=== PATIENT | male | born 1985 | race Caucasian/White ===

== ENCOUNTER 2016-03-27 13:54 | Emergency (ER) | payer OTHER ==
[2016-03-27 14:49] VITALS: BP 138/82; PULSE 94; RESP 16; TEMP 98.4; O2SAT 97
--- NOTE | 2016-03-27 15:30 | UCPHY ---
H & P Patient Type: New Smoking Status: Never smoked Time Seen by Provider: 03/27/16 14:59 HPI/ROS: CHIEF COMPLAINT: left wrist wound check HISTORY OF PRESENT ILLNESS: 30-year-old male presents requesting a wound check of his left wrist. Patient 4 days ago was picking up his niece in his middle watch made a puncture wound into his left wrist. Patient reports he did not wash this, later place antibiotic ointment and a Band-Aid, he is concerned about the surrounding redness and the scab. He denies pain, fevers or chills, difficulty with range of motion of his wrist. Tetanus is up-to-date, no other complaints. (Tika Crowell) Physical Exam: GEN: Awake, alert, oriented, no acute distress RESP: nl resp effort MSK: No swelling to wrist, full flexion and extension, 2+ radial pulses, sensation intact to light touch SKIN: 1 cm x 1 cm area of erythema with central scab, no raised, no fluctuance , no tenderness (Tika Crowell) Constitutional: Initial Vital Signs Temperature (C) 36.9 C 03/27/16 14:40 Heart Rate 94 03/27/16 14:40 Respiratory Rate 16 03/27/16 14:40 Blood Pressure 138/82 H 03/27/16 14:40 O2 Sat (%) 97 03/27/16 14:40 O2 Delivery Mode Room Air Allergies/Adverse Reactions: No Known Allergies Allergy (Unverified 03/27/16 14:47) Home Medications: Medication Instructions Recorded ADDERALL 15 MG TABLET 03/27/16 LORAZEPAM 03/27/16 MDM/Departure - MDM Procedures: Left wrist wound anesthetized 1% lidocaine without epinephrine, this was scribed well by emergency department a/c technician ointment and Band-Aid was placed. (Tika Crowell) ED Course/Re-evaluation: The patient was evaluated and managed by the Physician Performance Analyst/ Nurse Practitioner. My co-signature indicates that I have reviewed this chart and I agree with the findings and plan of care as documented. I am the secondary supervising physician. (Reina Higginbotham) - Depart Disposition: Home, Routine, Self-Care Clinical Impression: Puncture wound of left wrist Qualifiers: Encounter type: initial encounter Qualifier Code: (S61.532A) Puncture wound without foreign body of left wrist, initial encounter Condition: Good Instructions: Acute Wound Care (ED) Additional Instructions: Warm compresses to left wrist 5 times a day for 5 minutes, antibiotic ointment and Band-Aid daily, wash with soap and water daily. Return for any worsening symptoms, pain, drainage, spreading of redness. [place]errals[place],. [Primary Care Provider] - As per Instructions - PQRS PQRS Measurement: tariq (Tika Crowell)
== END 2016-03-27 16:18 | disposition home or self-care (01) ==
LOC: CED 13:54
DX: S61.532A Puncture wound without foreign body of left wrist, initial encounter (principal)
CPT/HCPCS: 99203-PO; G0463-PO

== ENCOUNTER 2016-07-12 14:25 | Emergency (ER) | payer OTHER ==
[2016-07-12 14:36] VITALS: BP 145/97; PULSE 94; RESP 16; TEMP 98.1; O2SAT 97
--- NOTE | 2016-07-12 15:13 | UCPHY ---
H & P Patient Type: Established Chief Complaint Nursing Narrative: Itchy rash on R arm, scrotum, and penis x 1 week. Dx impetigo on face 07/09 and taking keflex. Time Seen by Provider: 07/12/16 14:59 HPI/ROS: Chief Complaint: Rash HPI: 30-year-old male presenting complaining of a rash on his face and his groin. Patient noticed a small rash in his scrotum on Saturday but also had a significant crusting rash on his face. He was seen by his primary care physician started on Keflex. Patient states that his rash on his face has improved however the rash in his scrotum seems to be worse. It is not painful but is itching. Has not had any crushing discharge. No fevers or chills. No urethral discharge. He has not been sexually active for over a year. He has never had a sexually transmitted disease. ROS: 10 point Review of Systems is negative except as noted in the HPI. PMH: Anxiety Medications: Keflex, Adderall, occasional benzos for anxiety Social History: No smoking, occasional alcohol, no recreational drug use Family History: non-contributory Physical Exam: Gen: Awake, Alert, No Distress HEENT: Face: He has mild erythema on his cheeks without any crusting or tenderness Nose: no rhinorrhea Eyes: PERRLA, EOMI Mouth: Moist mucosa Neck: Supple, no JVD Genital exam: He has got mild diffuse erythema of his scrotum which is nontender. Is not warm to the touch. There are some satellite lesions. There is some erythema at the base of falls as well. He has no urethral discharge. There are no excoriations we or other lesions. He has no inguinal lymphadenopathy. Testicles have normal lie and are nontender. He has normal cremasteric. Back: no CVA tenderness, no midline tenderness Ext: no edema, non-tender Neuro: CN II-XII intact, Sensation grossly intact, Strength 5/5 in bilateral upper and lower extremities - Personal History Current Tetanus Diphtheria and Acellular Pertussis (TDAP): Yes Tetanus Vaccine Date: within 10 years - Medical/Surgical History Hx Asthma: No Hx Chronic Respiratory Disease: No Hx Diabetes: No Hx Cardiac Disease: No Hx Renal Disease: No Hx Cirrhosis: No Hx Alcoholism: No Hx HIV/AIDS: No Hx Splenectomy or Spleen Trauma: No Other PMH: Tonsillectomy, anxiety, ADD, AFIB - Family History Significant Family History: No pertinent family hx - Social History Smoking Status: Never smoked Constitutional: Initial Vital Signs Temperature (C) 36.7 C 07/12/16 14:27 Heart Rate 94 07/12/16 14:27 Respiratory Rate 16 07/12/16 14:27 Blood Pressure 145/97 H 07/12/16 14:27 O2 Sat (%) 97 07/12/16 14:27 O2 Delivery Mode Room Air Allergies/Adverse Reactions: No Known Allergies Allergy (Verified 07/12/16 14:36) Home Medications: Medication Instructions Recorded ADDERALL 15 MG TABLET 03/27/16 LORAZEPAM 03/27/16 Cephalexin [Keflex (*)] 500 mg PO Q6H #28 cap 07/12/16 Keflex 07/12/16 Mupirocin 07/12/16 Sulfamethox/Tmp 800/160 mg 1 tab PO BID #14 tab 07/12/16 [Bactrim Ds] Medical Decision Making ED Course/Re-evaluation: 30-year-old male with a fungal appearing scrotal rash however there is some erythema at the bases of his her follicles cannot rule out a folliculitis at this time. He certainly has no signs of Tj's gangrene. There is no subcutaneous emphysema. Is not tender. He has no testicular tenderness to suggest an orchitis or epididymitis. He has normal lie. He is already taking Keflex. Will continue this for another 5 days for what Bactrim as well and I have suggested a take Lotrimin topically. He will follow up with primary care physician on Saturday for re-evaluation. Departure - Departure Disposition: Home, Routine, Self-Care Clinical Impression: Fungal rash of trunk Condition: Good Instructions: Antifungals (On the skin), Folliculitis (ED), Jock Itch (ED), Skin Yeast Infection (ED) Additional Instructions: Apply Lotrimin ointment to the affected area per package instructions. Continue taking Keflex and Bactrim for the next 7 days. Follow up with her physician on Saturday for re-evaluation. Return to the emergency department for increasing pain, spreading redness, fevers, chills, or any other concerns. Referrals: Michael Quinn DO [Primary Care Provider] - As per Instructions Prescriptions: Cephalexin [Keflex (*)] 500 mg PO Q6H #28 cap Sulfamethox/Tmp 800/160 mg [Bactrim Ds] 1 tab PO BID #14 tab - PQRS PQRS Measurement: NA
== END 2016-07-12 15:30 | disposition home or self-care (01) ==
LOC: CED 14:25
DX: B36.9 Superficial mycosis, unspecified (principal)
CPT/HCPCS: 99214-PO; G0463-PO